=== PATIENT | female | born 1945 | race Caucasian/White ===

== ENCOUNTER 2024-03-01 14:18 | Emergency (ER) | payer MEDICARE, SELFPAY ==
[2024-03-01 14:19] VITALS: BP 142/85; PULSE 86; RESP 16; TEMP 36.4; O2SAT 95; BMI 28.8
--- NOTE | 2024-03-01 14:21 | XR_ITS ---
WS: [id number] XR hip RT 2-3V wo/w pel* [id number] REASON FOR EXAM: hip pain FINDINGS: Minimally displaced intertrochanteric fracture which extends into the lesser trochanter no significan t displacement of the lesser trochanter. No other significant abnormality. XR/XR hip RT 2-3V wo/w pel* [id number] IMPRESSION: Right hip fracture as above.
--- NOTE | 2024-03-01 14:24 | ED_ITS ---
HPI - Fall 2 General: Chief Complaint: Fall Stated Complaint: FALL; RIGHT HIP PAIN Time Seen by Provider: 03/01/24 14:20 Source: patient Mode of arrival: ambulatory History of Present Illness: 78-year-old female who presents to the e mergency room via EMS after a fall complaining of right hip pain patient actually fell around 530 this morning she was unable to get up eventually she scoot herself across the floor got into a fluid called out. She denies hurting anything else she denies any other injury she did get nauseous and route and was given Zofran IV. complaint: fall Onset (ago): minute(s) Fall from: standing Associated symptoms-after fall: Denies abdominal pain, chest pain or neck pain Review of Systems 2 Const: Denies: fever(s) or chills Card: Denies: chest pain Resp: Denies: dyspnea GI: Denies: abdominal pain : Denies: dysuria, urinary frequency or urinary urgency Musc: Denies: neck pain or back pain Skin/Breast: Denies: rash Physical Exam 2 Const: GENERAL APPEARANCE: cooperative and comfortable O RIENTATION/CONSCIOUSNESS: Yes awake, Yes oriented to person, Yes oriented to place and Yes oriented to time HENMT: COMMON NORMALS: normocephalic, atraumatic and hearing grossly normal bilaterally HEAD & SCALP: normocephalic and atraumatic Neck/C-Spine: OTHER: Cervical spine cleared clinically Resp: COMMON NORMALS: normal respiratory effort, No retractions, No use of accessory muscles and clear to auscultation bilaterally AUSCULTATION: clear to auscultation bilaterally Cardio: COMMON NORMALS: regular rate, regular rhythm and No murmurs present (Cardio) RATE: regular rate RHYTHM: regular rhythm GI: COMMON NORMALS: Soft to palpation and No hepatosplenomegaly present A USCULTATION: Yes normoactive bowel sounds PALPATION: Yes Soft to palpation, No Tenderness to palpation present (GI), No Guarding due to palpation present (GI) and Yes No hepatosplenomegaly present Extremity: COMMON NORMALS: normal to inspection, capillary refill normal, no clubbing, cyanosis or edema, no calf tenderness and no pedal edema Neuro: SENSORIUM/ORIENTATION: Yes oriented to person, Yes oriented to place and Yes oriented to time Skin: COMMON NORMALS: no rashes or lesions noted GENERAL SKIN EXAM: no rashes or lesions noted Course 2 Vital Signs: Vital signs: Vital Signs Temperature 97.6 F 03/01/24 14:19 Pulse Rate 86 03/01/24 14:19 Respiratory Rate 16 03/01/24 18:35 Blood Pressure 142/85 03/01/24 14:19 Pulse Oximetry 97 03/01/24 18:35 Oxygen Delivery Me thod Room Air 03/01/24 14:19 MDM - Fall Medical Decision Making Mechanical fall. X-ray shows right intertrochanteric hip fracture patient request transfer to [facility]. We had initially admitted to our hospital with consultation by Ortho with plan for surgery in the morning. Patient is requesting elective transfer to [facility] in [place] they have excepted will transfer via ambulance ER to ER Dr. Garcia at [facility] is excepted Initially patient was planned to be admit to family asked that she be transferred to [facility] per their request. We did contact emergency Dr. Harvey will except patient as a ER to ER and consult orthopedics. Medical Records I reviewed the patient's medical records. Lab Data I reviewed the patient's lab results. 03/01/24 14:47 03/01/24 14:47 Radiology Impressions Hip/Pelvis X-Ray 03/01/24 14:21 IMPRESSION: Right hip fracture as above. Chest X-Ray 03/01/24 14:45 IMPRESSION: Left lower lung field abnormality of uncertain chronicity. Early acute pneumonitis not readily excluded. Repeat chest x-ray with better inspiration may be helpful. Femur X-Ray 03/01/24 14:45 IMPRESSION: No acute abnormality. Knee X-Ray 03/01/24 14:45 IMPRESSION: No acute abnormality. Laboratory Results WBC 13.95 10^3/uL (3.29-11.43) H 03/01/24 14:47 RBC 4.29 10^6/uL (3.85-5.65) 03/01/24 14:47 Hgb 12.70 g/dL (11.27-16.99) 03/01/24 14:47 Hct 38.4 % (36-47) 03/01/24 14:47 MCV 89.5 fl (85-98) 03/01/24 14:47 MCH 29.6 pg (27-33) 03/01/24 14:47 MCHC 33.1 g/dL (30-55) 03/01/24 14:47 RDW 13.2 % (12.1-15.1) 03/01/24 14:47 Plt Count 273 10^3/cmm (157-399) 03/01/24 14:47 MPV 9.3 fL (7.4-10.4) 03/01/24 14:47 Neut % (Auto) 90.5 % 03/01/24 14:47 Lymph % (Auto) 4.4 % 03/01/24 14:47 Collier % (Auto) 4.1 % 03/01/24 14:47 Eos % (Auto) 0.0 % 03/01/24 14:47 Baso % (Auto) 0.2 % 03/01/24 14:47 Neut # (Auto) 12.62 10^3/uL (1.8-7.7) H 03/01/24 14:47 Lymph # (Auto) 0.6 10^3/uL (0.8-4.8) L 03/01/24 14:47 Collier # (Auto) 0.6 10^3/uL (0.2-0.9) 03/01/24 14:47 Eos # (Auto) 0.0 10^3/uL (0.0-0.8) 03/01/24 14:47 Baso # (Auto) 0.0 10^3/uL (0.0-0.1) 03/01/24 14:47 Nucleated RBC % (auto) 0 % 03/01/24 14:47 Nucleated RBCs # 0.0 /100WBC 03/01/24 14:47 PT 14.70 SECONDS (12.1-14.9) 03/01/24 14:47 INR 1.11 (0.8-1.2) 03/01/24 14:47 APTT 31.5 SECONDS (23.9-36.7) 03/01/24 14:47 Sodium 138 mmol/L (136-145) 03/01/24 14:47 Potassium 4.9 mmol/L (3.5-5.1) 03/01/24 14:47 Chloride 101 mmol/L (98-107) 03/01/24 14:47 Carbon Dioxide 19 mmol/L (22-29) L 03/01/24 14:47 Anion Gap 22.9 (5-19) H 03/01/24 14:47 BUN 26 mg/dL (8-23) H 03/01/24 14:47 Creatinine 0.9 mg/dL (0.5-0.9) 03/01/24 14:47 GFR Calculation Not Reportable 03/01/24 14:47 Glucose 292 mg/dL (65-115) H 03/01/24 14:47 POC Glucose 247 mg/dL (70-110) H 03/01/24 16:41 Calculated Osmolality 302 mOsm/kg (285-295) H 03/01/24 14:47 Calcium 9.3 mg/dL (8.5-10.5) 03/01/24 14:47 Magnesium 1.7 mg/dL (1.7-2.3) 03/01/24 14:47 Total Bilirubin 0.7 mg/dL (0.15-1.2) 03/01/24 14:47 AST 22 U/L (0-32) 03/01/24 14:47 ALT 11 U/L (0-33) 03/01/24 14:47 Alkaline Phosphatase 89 U/L (35-105) 03/01/24 14:47 Creatine Kinase 58 U/L (26-192) 03/01/24 14:47 Total Protein 8.1 g/dL (6.6-8.7) 03/01/24 14:47 Albumin 4.2 g/dL (3.5-5.2) 03/01/24 14:47 Globulin 3.9 g/dL (1.3-4.6) 03/01/24 14:47 Urine Color Yellow (Yellow) 03/01/24 15:30 Urine Appearance Clear (CLEAR) 03/01/24 15:30 Urine pH 5 (5-7) 03/01/24 15:30 Ur Specific [place] 1.020 (1.005-1.030) 03/01/24 15:30 Urine Protein Neg (Negative) 03/01/24 15:30 Urine Glucose (UA) 4+ (Normal) H 03/01/24 15:30 Urine Ketones 2+ (Negative) H 03/01/24 15:30 Urine Blood Neg (Negative) 03/01/24 15:30 Urine Nitrate Negative (Negative) 03/01/24 15:30 Urine Bilirubin Neg (Negative) 03/01/24 15:30 Urine Urobilinogen Norm mg/dL (Negative) 03/01/24 15:30 Ur Leukocyte Esterase Negative (Negative) 03/01/24 15:30 Urine RBC None /hpf (0-2) 03/01/24 15:30 Urine WBC 0-4 /hpf (0-5) H 03/01/24 15:30 Ur Squamous Epith Cells None /hpf (0-5) 03/01/24 15:30 Amorphous Sediment Not Reportable 03/01/24 15:30 Urine Bacteria Trace /hpf (NONE) 03/01/24 15:30 All radiology interpretation(s) finalized by discharge Discharge Plan Discharge Patient Disposition: Transfer to ED Clinical Impression: Closed intertrochanteric fracture of right hip Condition: Stable Prescriptions: No Action temazepam 30 mg capsule 30 mg PO BEDTIME Advil PM 200-38 mg Tablet 2 tab PO BEDTIME Lantus Solostar U-100 Insulin 100 unit/mL (3 mL) insulin pen 20 unit SUBCUT DAILY Referrals: Shane Harris MD [Primary Care Provider] - Patient Instructions: Opioid Safety, Pain Management Coding Level of Care Code ED Washer Blanket for Lester Francisco
--- NOTE | 2024-03-01 14:45 | XR_ITS ---
WS: [id number] XR femur RT min 2V* [id number] REASON FOR EXAM: trauma FINDINGS: Right femur is intact with no fracture identified. No significant soft tissue abnormality. XR/XR femur RT min 2V* [id number] IMPRESSION: No acute abnormality.
--- NOTE | 2024-03-01 14:45 | XR_ITS ---
WS: [id number] XR chest 1V portable [id number] REASON FOR EXAM: dyspnea/cough FINDINGS: Poor inspiratory effort and no previous examination for comparison. Moderate tortuosity of the thoracic aorta. Heart size at the upper limits of normal. Elevation of the right hemidiaphragm. Calcified granulomas disease in both hemithoraces. Retrocardiac reticular interstitial lung opacities of unknown chronicity. Bony thorax is intact with mild degenerative spondylosis in the mid and lower thoracic spine. XR/XR chest 1V portable [id number] IMPRESSION: Left lower lung field abnormality of uncertain chronicity. Early acute pneumoni tis not readily excluded. Repeat chest x-ray with better inspiration may be helpful.
--- NOTE | 2024-03-01 14:45 | XR_ITS ---
WS: [id number] XR knee RT 3V* [id number] REASON FOR EXAM: trauma FINDINGS: No fracture identified. Femoral condyles and tibial plateaus intact. 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 XR/XR knee RT 3V* [id number] IMPRESSION: No acute abnormality.
[2024-03-01 15:06] LABS: Basophils % 0.2 %; Hematocrit 38.4 % (36-47); Lymphocytes # 0.6 10^3/uL (0.8-4.8); Lymphocytes % 4.4 %; Mean Corpuscular HGB Conc 33.1 g/dL (30-55); Mean Corpuscular Hemoglobin 29.6 pg (27-33); Mean Corpuscular Volume 89.5 fl (85-98); Mean Platelet Volume 9.3 fL (7.4-10.4); Monocytes # 0.6 10^3/uL (0.2-0.9); Monocytes % 4.1 %; Neutrophils # 12.62 10^3/uL (1.8-7.7); Neutrophils % 90.5 %; Nucleated Red Blood Cells % 0 %; Platelet Count 273 10^3/cmm (157-399); Red Blood Count 4.29 10^6/uL (3.85-5.65); Red Cell Distribution Width 13.2 % (12.1-15.1); White Blood Count 13.95 10^3/uL (3.29-11.43)
--- NOTE | 2024-03-01 15:15 | ECG_ITS ---
[facility] Test Date: 2024-03-01 Pat Name: Jennifer Harris Department: Room: Gender: Female Global Program Director: : 1945 Requested By: Luis Alberto Valera Order Number: [id number] Dave MD: Raul Leon M.D. Measurements Intervals [place] Rate: 85 P: 55 [place]: 170 QRS: 15 QRSD: 82 T: 43 QT: 406 QTc: 483 Interpretive Statements SINUS RHYTHM No previous ECG available for comparison Electronically Signed On 03-03-2024 12:39:07 CDT by Raul Leon M.D. [email or web address]
[2024-03-01 15:25] LABS: Alanine Aminotransferase 11 U/L (0-33); Albumin Level 4.2 g/dL (3.5-5.2); Alkaline Phosphatase 89 U/L (35-105); Anion Gap 22.9 (5-19); Aspartate Amino Transferase 22 U/L (0-32); Blood Urea Nitrogen 26 mg/dL (8-23); Calcium 9.3 mg/dL (8.5-10.5); Carbon Dioxide 19 mmol/L (22-29); Chloride 101 mmol/L (98-107); Creatine Phosphokinase 58 U/L (26-192); Creatinine Clr Calc Pharmacy 62.0621; Globulin 3.9 g/dL (1.3-4.6); Glucose 292 mg/dL (65-115); Magnesium 1.7 mg/dL (1.7-2.3); Osmolality Calculated 302 mOsm/kg (285-295); Potassium 4.9 mmol/L (3.5-5.1); Sodium 138 mmol/L (136-145); Total Bilirubin 0.7 mg/dL (0.15-1.2); Total Protein 8.1 g/dL (6.6-8.7)
[2024-03-01 15:29] LABS: INR 1.11 (0.8-1.2)
[2024-03-01 15:30] LABS: Partial Thromboplastin Time 31.5 SECONDS (23.9-36.7)
[2024-03-01 16:15] LABS: Urine Appearance Clear (CLEAR); Urine Color Yellow (Yellow)
[2024-03-01 16:16] LABS: Bilirubin Urine Neg (Negative); Blood Urine Neg (Negative); Glucose Urine UA 4+ (Normal); Ketones Urine 2+ (Negative); Leukocyte Esterase Urine Negative (Negative); Nitrate Urine Negative (Negative); Protein Urine Neg (Negative); Urobilinogen Urine Norm (Negative); pH Urine 5 (5-7)
[2024-03-01 16:18] LABS: Add Urine Culture? No; Add Urine Microscopic? YES; Bacteria Urine TRACE /hpf; WBC Urine 0-4 /hpf (0-5)
[2024-03-01 16:43] LABS: Glucose Point of Care 247 mg/dL (70-110)
[2024-03-01] MEDS: insulin regular-human 100 units/1 mL 10 UNIT IVP (16:56)
[2024-03-01] MEDS: sodium chloride 0.9% 1,000 ML 999 ML IV (16:57)
[2024-03-01] MEDS: fentaNYL 50 mcg/mL INJ 2mL IVP ×3 (16:57→19:20)
[2024-03-01 18:35] VITALS: RESP 16; O2SAT 97
[2024-03-01 19:07] VITALS: BP 144/77; PULSE 88; RESP 30; O2SAT 100
--- NOTE | 2024-03-01 19:14 | PC.NURSE ---
Report called to Lana Rosa RN at [facility] Emergency Department. All questions and concerns were addressed at time of report.
[2024-03-01 19:20] VITALS: RESP 30; O2SAT 100
[2024-03-01 19:58] VITALS: RESP 20
[2024-03-01] MEDS: HYDROmorphone 1 mg/mL INJ 1 mL IVP (19:58)
--- NOTE | 2024-03-01 20:11 | PC.NURSE ---
Report was given to Soto Jacob. All questions and concerns were addressed at time of transfer.
== END 2024-03-01 20:16 ==
PROVIDERS: Emergency Provider Family Medicine; PCP Family Medicine
DX: S72.141A Displaced intertrochanteric fracture of right femur, initial encounter for closed fracture (principal); W19.XXXA Unspecified fall, initial encounter; Z79.4 Long term (current) use of insulin
CPT/HCPCS: 36416; 51702; 71045; 73502; 73552; 73562; 80053; 81001; 82550; 82962; 83735; 85025; 85610; 85730; 93005; 96361; 96374; 96375; 96376; 99285; J1170; J1815; J3010; J7030